=== PATIENT | female | born 1995 | race Asian ===

== ENCOUNTER 2022-02-08 10:03 | Emergency (ER) | payer SELFPAY ==
[~2022-02-08] VITALS: Ht 160 cm; Wt 64.0 kg
[2022-02-08] MEDS ORDERED: IBUPROFEN 600MG TABLET PO STA (12:41)
[2022-02-08 13:15] VITALS: BP 125/62
== END 2022-02-08 13:48 | disposition left against medical advice (07) ==
LOC: ER 10:03
DX: J09.X2 Influenza due to identified novel influenza A virus with other respiratory manifestations (principal); Z20.822 Contact with and (suspected) exposure to COVID-19
CPT/HCPCS: 71045; 87420; 87426; 87804; 99284; C9803